=== PATIENT | male | born 1985 | race Caucasian/White ===

== ENCOUNTER 2017-11-20 17:34 | Emergency (ER) | payer BC ==
[~2017-11-20] VITALS: Ht 190.5 cm; Wt 129.3 kg
[2017-11-20 17:41] VITALS: BP 166/111; TEMP 98.5
[2017-11-20] MEDS ORDERED: ZANTAC 150MG T150 MG PO (18:13)
[2017-11-20] MEDS ORDERED: VALTREX1 GM PO (18:13)
[2017-11-20] MEDS ORDERED: TRIAMCINOLONE A15 GM TP (18:28)
[2017-11-20 18:40] VITALS: PULSE 98
== END 2017-11-20 18:40 | disposition home or self-care (01) ==
LOC: COL.ER 17:34
DX: R21 Rash and other nonspecific skin eruption (principal)